=== PATIENT | female | born 1940 | race Caucasian/White ===

== ENCOUNTER → 2016-10-02 | Outpatient (CLI) | payer MEDICARE | END | disposition home or self-care (01) | LOC: MW.CHFP 08:21 | PROVIDERS: ATTEND Student in an Organized Health Care Education/Training Program | DX: E87.6 Hypokalemia (principal); R00.0 Tachycardia, unspecified; C49.22 Malignant neoplasm of connective and soft tissue of left lower limb, including hip; I48.91 Unspecified atrial fibrillation; I50.9 Heart failure, unspecified; N18.9 Chronic kidney disease, unspecified; E78.5 Hyperlipidemia, unspecified; Z09 Encounter for follow-up examination after completed treatment for conditions other than malignant neoplasm | CPT/HCPCS: 36415; 80048; 93005; 99214; G0463 ==

== ENCOUNTER 2016-10-14 13:34 | Emergency (ER) | payer MEDICARE ==
--- NOTE | 2016-10-14 14:00 | EDM.PDOC ---
ED HPI Skin/Rash - General Chief Complaint: Skin Complaint Stated Complaint: UNK Time Seen by Provider: 10/14/16 13:55 Source: Reports: Patient History Limitations: Reports: No limitations - History of Present Illness INITIAL COMMENTS - FREE TEXT/NARRATIVE: HISTORY AND PHYSICAL: History of present illness: [Patient comes to the emergency room, accompanied by her daughter, complaining of a skin tear to her right forearm. Her was falling and reached out for her grabbing onto her right forearm with his fingernails. She had immediate pain and bleeding from her arm. She has been prone to skin tears in the past.] Review of systems: As per history of present illness and below otherwise all systems reviewed and negative. Past medical history: As per history of present illness and as reviewed below otherwise noncontributory. Surgical history: As per history of present illness and as reviewed below otherwise noncontributory. Social history: No reported history of drug or alcohol abuse. Family history: As per history of present illness and as reviewed below otherwise noncontributory. Physical exam: HEENT: Atraumatic, normocephalic. Lungs: Clear to auscultation, breath sounds equal bilaterally. Heart: S1S2, regular rate and rhythm. Abdomen: Soft, nondistended, nontender. Extremities: Skin is frail. Ecchymosis present to R forearm, with 2 skin tears, one measuring 1.5" in length, and one 0.5" in length. Genitourinary: Deferred. Rectal: Deferred. Neuro: Awake, alert, oriented. Exam nonfocal. Impression: [Skin tear right forearm] Plan: [Wound is cleansed with copious amount of wound wash, and is dressed with Tegaderm. Followup with primary care later this week for reevaluation. All questions are answered and concerns are addressed. Daughter is present at patient's bedside. ] Definitive disposition and diagnosis as appropriate pending reevaluation and review of above. - Related Data Allergies Allergy/AdvReac Type Severity Reaction Status Date / Time No Known Allergies Allergy Verified 10/14/16 14:05 Home Meds: Ambulatory Orders Medication Instructions Recorded Confirmed amLODIPine [Norvasc] 5 mg PO DAILY 07/20/15 10/01/16 Acetaminophen 650 mg PO Q4H PRN 05/28/16 10/01/16 Aspirin [Ecotrin] 81 mg PO DAILY 07/10/16 10/01/16 Calcitriol 0.25 mcg PO ASDIRECTED 08/15/16 10/01/16 Hydrocodone/Acetaminophen 5 - 325 mg PO Q12H PRN 08/15/16 10/01/16 [Hydrocodon-Acetaminophen 5-325] Insulin Glarg,Human.Rec.Analog 15 units SUBCUT DAILY 08/15/16 10/01/16 [LantUS Solostar] Insulin Lispro [HumaLOG] 7 unit SUBCUT TIDAC 08/15/16 10/01/16 Metolazone [Zaroxolyn] 10 mg PO DAILY 08/15/16 10/01/16 Metoprolol Tartrate [Lopressor] 100 mg PO BID 08/15/16 10/01/16 Pentoxifylline [TRENtal] 400 mg PO TID 08/15/16 10/01/16 Potassium Chloride 40 meq PO BID 08/15/16 10/01/16 Torsemide 100 mg PO DAILY 08/15/16 10/01/16 Vitamin E 400 unit PO BID 08/15/16 10/01/16 atorvaSTATin Calcium [Atorvastatin 2 tab PO BEDTIME 08/15/16 10/01/16 Calcium] Ondansetron [Ondansetron ODT] 1 tab PO TID 10/01/16 10/01/16 Past Medical History HEENT History: Reports: Cataract, Hard of hearing Other HEENT History: top and bottom dentures Cardiovascular History: Reports: Afib, Bacterial endocarditis, Heart Failure, Hypertension Other Cardiovascular History: hx endocarditis,sepsis,CHF,comma for 10 days,on vent. and dialysis in january of this year. Respiratory History: Reports: None Gastrointestinal History: Reports: GERD, GI bleed Other Gastrointestinal History: remopval of sludge from gallbladder and now with gallbladder drain in situ Genitourinary History: Reports: Acute renal failure, Chronic renal insuffiency Other Genitourinary History: hx of renal failure with dialysis in January 2015 following episode of endocaditis and staff infection (was in [facility] for 2 weeks as stated by son) THERAPEUTIC STRATEGY LEAD History: Reports: Musculoskeletal History: Reports: Fracture, Osteoarthritis Neurological History: Reports: CVA Other Neuro History: aphasia. need to write down questions to pt and she is able to answer yes or no. 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 Dermatologic History: Reports: Other (see below) Other Dermatologic History: hx cellulitis to left leg as stated in H&P - Infectious Disease History Infectious Disease History: Reports: Chicken pox, Measles, Mumps - Past Surgical History Head Surgeries/Procedures: Reports: None HEENT Surgical History: Reports: Cataract surgery Cardiovascular Surgical History: Reports: None GI Surgical History: Reports: None Female Surgical History: Reports: None Endocrine Surgical History: Reports: None Neurological Surgical History: Reports: None Musculoskeletal Surgical History: Reports: None Social & Family History - Family History Family Medical History: Noncontributory HEENT: Reports: Hearing impairment, Impaired vision Respiratory: Reports: COPD Endocrine/Metabolic: Reports: Diabetes, type II Oncologic: Reports: Leukemia - Tobacco Use Smoking Status *Q: Never Smoker Second Hand Smoke Exposure: No - Caffeine Use Caffeine Use: Reports: Coffee, Soda, Tea Caffeine Use Comment: 2 drinks/day - Alcohol Use Days Per Week of Alcohol Use: 0 Number of Drinks Per Day: 0 Total Drinks Per Week: 0 - Recreational Drug Use Recreational Drug Use: No Drug Use in Last 12 Months: No - Living Situation & Occupation Living situation: Reports: Occupation: retired ED ROS GENERAL - Review of Systems Review Of Systems: ROS reveals no pertinent complaints other than HPI. ED EXAM, SKIN/RASH Exam: See Below Course - Vital Signs Last Recorded V/S: Last Vital Signs Temp 97.7 F 10/14/16 14:05 Pulse 102 H 10/14/16 14:05 Resp 16 10/14/16 14:05 BP 117/66 10/14/16 14:05 Pulse Ox 93 L 10/14/16 14:05 Departure - Departure Time of Disposition: 14:15 Disposition: Home, Self-Care 01 Condition: good Clinical Impression: Skin tear of forearm without complication Qualifiers: Encounter type: initial encounter Laterality: right Qualified Code(s): S51.811A - Laceration without foreign body of right forearm, initial encounter Instructions: Nonsutured Laceration Care Referrals: PCP,None [Primary Care Provider] - Forms: ED Department Discharge Additional Instructions: The following information is given to patients seen in the emergency department who are being discharged to home. This information is to outline your options for follow-up care. We provide all patients seen in our emergency department with a follow-up referral. The need for follow-up, as well as the timing and circumstances, are variable depending upon the specifics of your emergency department visit. If you don't have a primary care physician on staff, we will provide you with a referral. We always advise you to contact your personal physician following an emergency department visit to inform them of the circumstance of the visit and for follow-up with them and/or the need for any referrals to a consulting specialist. The emergency department will also refer you to a specialist when appropriate. This referral assures that you have the opportunity for follow-up care with a specialist. All of these measure are taken in an effort to provide you with optimal care, which includes your follow-up. Under all circumstances we always encourage you to contact your private physician who remains a resource for coordinating your care. When calling for follow-up care, please make the office aware that this follow-up is from your recent emergency room visit. If for any reason you are refused follow-up, please contact the [facility] emergency department at and asked to speak to the emergency department charge nurse. [facility] Primary [facility] [address] [place] [id number] Followup with your primary care provider in 3-5 days for reevaluation of skin tear. In the meantime leave the dressing intact until reevaluated. Return to ER as needed and as discussed.
[2016-10-14 14:09] VITALS: BP 117/66
== END 2016-10-14 14:20 | disposition home or self-care (01) ==
LOC: MW.ED 13:34
DX: S50.811A Abrasion of right forearm, initial encounter (principal); K21.9 Gastro-esophageal reflux disease without esophagitis; M19.90 Unspecified osteoarthritis, unspecified site; E11.9 Type 2 diabetes mellitus without complications; W19.XXXA Unspecified fall, initial encounter; Z79.899 Other long term (current) drug therapy; Z79.82 Long term (current) use of aspirin; Z98.49 Cataract extraction status, unspecified eye; Z86.2 Personal history of diseases of the blood and blood-forming organs and certain disorders involving the immune mechanism
CPT/HCPCS: 99282; 99283

== ENCOUNTER → 2016-10-17 | Outpatient (CLI) | payer MEDICARE | LOC: MW.CHIM 09:31 | PROVIDERS: ATTEND Internal Medicine | DX: D62 Acute posthemorrhagic anemia (principal); R00.0 Tachycardia, unspecified | CPT/HCPCS: 36415; 80048; G0463 ==

== ENCOUNTER 2016-10-24 04:11 | Emergency (ER) | payer MEDICARE ==
--- NOTE | 2016-10-24 04:55 | EDM.PDOC ---
ED HISTORY OF PRESENT ILLNESS - General Chief Complaint: Respiratory Problem Stated Complaint: CHEST PAINS Time Seen by Provider: 10/24/16 04:20 - History of Present Illness INITIAL COMMENTS - FREE TEXT/NARRATIVE: HISTORY AND PHYSICAL: History of present illness: The patient is a 75-year-old female who is well known to me and has a history of diabetes hypertension chronic renal insufficiency a left lower extremity sarcoma and multiple ER visits for shortness of breath and related problems; the patient presents tonight with the son after awakening him sleep at 2 AM in complaining of shortness of breath feeling panicked and having some chest heaviness. According to the son she was having labored breathing and were told by the primary to come to the ER if this happens. I saw the patient on Oct 01 for similar symptoms and she has since that visit been seen her screwdown operator, Dr Rice, as well as her kidney doctor, , at [facility] and had her medications adjusted. She's currently on Zaroxolyn and torsemide for her CHF and fluid retention and they have adjusted those recently to higher values. The patient has also been sent seen by Dr. Holden and Dr. Sue regarding her left leg sarcoma and both have determined that intervention is likely not possible and they have been discussing hospice care. Patient has appointment with her primary Dr. Rao this to further discuss hospice care and to reevaluate her medications. The son states that he did not know what to do when she was feeling so short of breath tonight so brought her here but currently in the ER she is significantly improved and back to her baseline. The patient for me as no complaints of chest pain or shortness of breath no abdominal pain no fevers vomiting and has been eating and drinking normally. She has been compliant with her medications. Review of systems: As per history of present illness and below otherwise all systems reviewed and negative. Past medical history: As per history of present illness and as reviewed below otherwise noncontributory. Surgical history: As per history of present illness and as reviewed below otherwise noncontributory. Social history: No reported history of drug or alcohol abuse. Family history: As per history of present illness and as reviewed below otherwise noncontributory. Physical exam: General: Well-developed well-nourished female who is breathing easily and without distress in the ED and her vital signs have been reviewed by me. She is exhibiting no signs of work of breathing or anxiety and she is very hard of hearing HEENT: Atraumatic, normocephalic, pupils reactive, negative for conjunctival pallor or scleral icterus, mucous membranes moist, throat clear, neck supple, nontender, trachea midline. Lungs: Clear to auscultation, breath sounds equal bilaterally, chest nontender.No work or breathing or sensory muscle use Heart: S1S2, regular rhythm tachycardic rate which is chronic for her, negative for clicks, rubs, or JVD. Abdomen: Soft, nondistended, nontender. Negative for masses or hepatosplenomegaly. Negative for costovertebral tenderness. Pelvis: Stable nontender. Genitourinary: Deferred. Rectal: Deferred. Extremities: Atraumatic, negative for cords or calf pain. Neurovascular unremarkable.Left lower extremity leg lesion is somewhere to prior evaluations and there is no surrounding erythema swelling or tenderness appreciated by me today. There is a trace to 1+ pedal edema but it is not pitting and there is no gross calf tenderness Neuro: Awake, alert, oriented. Cranial nerves II through XII unremarkable. Cerebellum unremarkable. Motor and sensory unremarkable throughout. Exam nonfocal. Diagnostics: EKG chest x-ray CBC CMP troponin BNP Therapeutics: O2 monitor Please note the patient is chronically tachycardic and has consistently been tachycardic on all of her clinic visit the most recent being with Dr. Sue on her which had a heart rate of 120. On her ER visit with me she was similarly tachycardic and this is not different or new per her history. She does not complain of palpitations or skipping beats. According to the son they are currently discussing hospice but that has not been decided and the plan is to discuss it with Dr. Rao again on . He states to me that when she gets herself worked up and she is short of breath he does not know what to do and he brings her here. Today's BNP is significantly improved from her last visit with me on October 01. Her BUN and creatinine have worsened with her creatinine today is 3.5 compared to the 2.9 it was last performed as an outpatient. She states she is having urine output with her medications. I will advise the son have that rechecked with Dr. Rao on and I will write an order to have that done before she sees him. In discussion with the son, he feels comfortable with followup with Dr. Rao on and has been advised and reasons to return. Impression: Episode of dyspnea, resolved with multiple medical problems stable Definitive disposition and diagnosis as appropriate pending reevaluation and review of above. - Related Data Allergies/ADRs: Allergies Allergy/AdvReac Type Severity Reaction Status Date / Time No Known Allergies Allergy Verified 10/24/16 04:27 Home Meds: Home Meds Acetaminophen 650 mg PO Q4H PRN 05/28/16 [History] Aspirin [Ecotrin] 81 mg PO DAILY 07/10/16 [History] Calcitriol 0.25 mcg PO ASDIRECTED 08/15/16 [History] Hydrocodone/Acetaminophen [Hydrocodon-Acetaminophen 5-325] 5 - 325 mg PO Q12H PRN 08/15/16 [History] Insulin Glarg,Human.Rec.Analog [LantUS Solostar] 15 units SUBCUT DAILY 08/15/16 [History] Insulin Lispro [HumaLOG] 7 unit SUBCUT TIDAC 08/15/16 [History] Metolazone [Zaroxolyn] 10 mg PO DAILY 08/15/16 [History] Metoprolol Tartrate [Lopressor] 100 mg PO BID 08/15/16 [History] Pentoxifylline [TRENtal] 400 mg PO TID 08/15/16 [History] Potassium Chloride 40 meq PO BID 08/15/16 [History] Torsemide 140 mg PO DAILY 08/15/16 [History] Vitamin E 400 unit PO BID 08/15/16 [History] atorvaSTATin Calcium [Atorvastatin Calcium] 2 tab PO BEDTIME 08/15/16 [History] Ondansetron [Ondansetron ODT] 1 tab PO TID 10/01/16 [History] Past Medical History HEENT History: Reports: Cataract, Hard of hearing Other HEENT History: top and bottom dentures Cardiovascular History: Reports: Afib, Bacterial endocarditis, Heart Failure, Hypertension Other Cardiovascular History: hx endocarditis,sepsis,CHF,comma for 10 days,on vent. and dialysis in january of this year. 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 need to write down questions to pt and she is able to answer yes or no. 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 Dermatologic History: Reports: Other (see below) Other Dermatologic History: hx cellulitis to left leg as stated in H&P - Infectious Disease History Infectious Disease History: Reports: Chicken pox, Measles, Mumps - Past Surgical History Head Surgeries/Procedures: Reports: None HEENT Surgical History: Reports: Cataract surgery Cardiovascular Surgical History: Reports: None GI Surgical History: Reports: None Female Surgical History: Reports: None Endocrine Surgical History: Reports: None Neurological Surgical History: Reports: None Musculoskeletal Surgical History: Reports: None Social & Family History - Family History Family Medical History: Noncontributory HEENT: Reports: Hearing impairment, Impaired vision Respiratory: Reports: COPD Endocrine/Metabolic: Reports: Diabetes, type II Oncologic: Reports: Leukemia - Tobacco Use Smoking Status *Q: Never Smoker Second Hand Smoke Exposure: No - Caffeine Use Caffeine Use: Reports: Coffee, Soda, Tea Caffeine Use Comment: 2 drinks/day - Alcohol Use Days Per Week of Alcohol Use: 0 Number of Drinks Per Day: 0 Total Drinks Per Week: 0 - Recreational Drug Use Recreational Drug Use: No Drug Use in Last 12 Months: No - Living Situation & Occupation Living situation: Reports: Occupation: retired ED ROS GENERAL - Review of Systems Review Of Systems: ROS reveals no pertinent complaints other than HPI. ED EXAM, GENERAL - Physical Exam Exam: See Below (See dictation) Course - Vital Signs Last Recorded V/S: Last Vital Signs Temp 36.2 C 10/24/16 04:11 Pulse 118 H 10/24/16 04:11 Resp 18 10/24/16 04:11 BP 115/73 10/24/16 04:11 Pulse Ox 100 10/24/16 04:11 - Orders/Labs/Meds Orders: Active Orders 24 hr Category Date Time Status Cardiac Monitoring [RC] . DIRECTED Care 10/24/16 04:47 Active EKG Documentation Completion [RC] STAT Care 10/24/16 04:47 Active Oxygen Therapy, ED [RC] ASDIRECTED Care 10/24/16 04:47 Active Pulse Oximetry [RC] ASDIRECTED Care 10/24/16 04:47 Active Chest 1V Frontal [CR] Stat Exams 10/24/16 04:47 Taken Labs: Laboratory Tests 10/24/16 10/24/16 10/24/16 Range/Units 04:27 04:35 04:35 WBC 9.07 (4.0-11.0) K/uL RBC 4.16 L (4.30-5.90) M/uL Hgb 11.6 L (12.0-16.0) g/dL Hct 34.8 L (36.0-46.0) % MCV 83.7 (80.0-98.0) fL MCH 27.9 (27.0-32.0) pg MCHC 33.3 (31.0-37.0) g/dL RDW Std Deviation 48.6 (28.0-62.0) fl RDW Coeff of Bossman 16 H (11.0-15.0) % Plt Count 219 (150-400) K/uL MPV 9.20 (7.40-12.00) fL Neut % (Auto) 62.0 (48.0-80.0) % Lymph % (Auto) 22.4 (16.0-40.0) % [place] % (Auto) 12.9 (0.0-15.0) % Eos % (Auto) 2.0 (0.0-7.0) % Baso % (Auto) 0.7 (0.0-1.5) % Neut # 5.6 (1.4-5.7) K/uL Lymph # 2.0 (0.6-2.4) K/uL [place] # 1.2 H (0.0-0.8) K/uL Eos # 0.2 (0.0-0.7) K/uL Baso # 0.1 (0.0-0.1) K/uL Nucleated RBC % 0.0 /100WBC Nucleated RBCs # 0 K/uL Sodium 137 (136-146) mmol/L Potassium 3.8 (3.5-5.1) mmol/L Chloride 93 L (98-110) mmol/L Carbon Dioxide 27 (21-31) mmol/L BUN 123 H (6.0-23.0) mg/dL Creatinine 3.5 H (0.6-1.5) mg/dL Est Cr Clr Drug Dosing 11.13 mL/min Estimated GFR (MDRD) 12.7 ml/min Glucose 157 H (60-110) mg/dL Calcium 9.1 (8.8-10.8) mg/dL Total Bilirubin 0.7 (0.1-1.5) mg/dL AST 35 (5-40) IU/L ALT 25 (8-54) IU/L Alkaline Phosphatase 86 (40-150) Troponin I < 0.10 (0.0-0.29) NG/ML B-Natriuretic Peptide (<100) PG/ML Total Protein 8.2 H (6.0-8.0) g/dL Albumin 3.5 (3.4-4.8) g/dL Globulin 4.7 H (2.0-3.5) g/dL Albumin/Globulin Ratio 0.7 L (1.3-2.8) 10/24/16 Range/Units 04:35 WBC (4.0-11.0) K/uL RBC (4.30-5.90) M/uL Hgb (12.0-16.0) g/dL Hct (36.0-46.0) % MCV (80.0-98.0) fL MCH (27.0-32.0) pg MCHC (31.0-37.0) g/dL RDW Std Deviation (28.0-62.0) fl RDW Coeff of Bossman (11.0-15.0) % Plt Count (150-400) K/uL MPV (7.40-12.00) fL Neut % (Auto) (48.0-80.0) % Lymph % (Auto) (16.0-40.0) % [place] % (Auto) (0.0-15.0) % Eos % (Auto) (0.0-7.0) % Baso % (Auto) (0.0-1.5) % Neut # (1.4-5.7) K/uL Lymph # (0.6-2.4) K/uL [place] # (0.0-0.8) K/uL Eos # (0.0-0.7) K/uL Baso # (0.0-0.1) K/uL Nucleated RBC % /100WBC Nucleated RBCs # K/uL Sodium (136-146) mmol/L Potassium (3.5-5.1) mmol/L Chloride (98-110) mmol/L Carbon Dioxide (21-31) mmol/L BUN (6.0-23.0) mg/dL Creatinine (0.6-1.5) mg/dL Est Cr Clr Drug Dosing mL/min Estimated GFR (MDRD) ml/min Glucose (60-110) mg/dL Calcium (8.8-10.8) mg/dL Total Bilirubin (0.1-1.5) mg/dL AST (5-40) IU/L ALT (8-54) IU/L Alkaline Phosphatase (40-150) Troponin I (0.0-0.29) NG/ML B-Natriuretic Peptide 672 H (<100) PG/ML Total Protein (6.0-8.0) g/dL Albumin (3.4-4.8) g/dL Globulin (2.0-3.5) g/dL Albumin/Globulin Ratio (1.3-2.8) Departure - Departure Time of Disposition: 05:46 Disposition: Home, Self-Care 01 Condition: good Clinical Impression: Dyspnea Qualifiers: Dyspnea type: unspecified Qualified Code(s): R06.00 - Dyspnea, unspecified Referrals: Lambert Rao MD [Primary Care Provider] - Forms: ED Department Discharge Additional Instructions: The following information is given to patients seen in the emergency department who are being discharged to home. This information is to outline your options for follow-up care. We provide all patients seen in our emergency department with a follow-up referral. The need for follow-up, as well as the timing and circumstances, are variable depending upon the specifics of your emergency department visit. If you don't have a primary care physician on staff, we will provide you with a referral. We always advise you to contact your personal physician following an emergency department visit to inform them of the circumstance of the visit and for follow-up with them and/or the need for any referrals to a consulting specialist. The emergency department will also refer you to a specialist when appropriate. This referral assures that you have the opportunity for followup care with a specialist. All of these measure are taken in an effort to provide you with optimal care, which includes your followup. Under all circumstances we always encourage you to contact your private physician who remains a resource for coordinating your care. When calling for followup care, please make the office aware that this follow-up is from your recent emergency room visit. If for any reason you are refused follow-up, please contact the [facility] emergency department at and ask to speak to the emergency department charge nurse. [facility] Primary care- Internal Medicine and Family [address] [address] Please continue all home medications and keep her appointment with Dr. Rao on . Please go have her blood drawn to recheck your kidney function prior to that appointment on using the prescription given to you kandice. Please return to ER as needed and as discussed - My Orders Last 24 Hours: My Active Orders 10/24/16 04:47 Cardiac Monitoring [RC] . DIRECTED EKG Documentation Completion [RC] STAT Oxygen Therapy, ED [RC] ASDIRECTED Pulse Oximetry [RC] ASDIRECTED Chest 1V Frontal [CR] Stat - Assessment/Plan Last 24 Hours: My Active Orders 10/24/16 04:47 Cardiac Monitoring [RC] . DIRECTED EKG Documentation Completion [RC] STAT Oxygen Therapy, ED [RC] ASDIRECTED Pulse Oximetry [RC] ASDIRECTED Chest 1V Frontal [CR] Stat
[2016-10-24 05:51] VITALS: BP 124/78
--- NOTE | 2016-10-26 16:49 | CR ---
EXAM DATE: 10/24/16 PATIENT'S AGE: 75 Patient: CRISTOBAL LIZA Facility: [place], [place] Site . Site : [id number] Study: XRay Chest [id number]/14/2017 5:02:05 AM Ordering Physician: Venus Saldaña Final Report: Indication: Chest pain. Shortness of breath. Technique: Chest 1 view Comparison: 10/01/16. Findings/Impression: Cardiovascular and mediastinum: Stable cardiomegaly. Lungs and pleural space: Expiratory study. No gross consolidation or pleural effusions. Bones and soft tissues: No significant change. Dictated by Tonny Herndon MD @ 10/24/2016 5:41:02 AM Dictated by: Tonny Herndon MD @ 10/24/2016 05:41:07 (Electronic Signature) Report Signed by Proxy and Original Signed Document filed in the Medical Record. [email or web address]
== END 2016-10-24 06:21 | disposition home or self-care (01) ==
LOC: MW.ED 04:11
DX: R06.00 Dyspnea, unspecified (principal); I10 Essential (primary) hypertension; K21.9 Gastro-esophageal reflux disease without esophagitis; E11.9 Type 2 diabetes mellitus without complications; M19.90 Unspecified osteoarthritis, unspecified site; Z79.82 Long term (current) use of aspirin; Z79.899 Other long term (current) drug therapy; Z98.49 Cataract extraction status, unspecified eye; Z86.2 Personal history of diseases of the blood and blood-forming organs and certain disorders involving the immune mechanism
CPT/HCPCS: 36415; 71010; 71010-26; 80053; 83880; 84484; 85025; 93005; 99284; 99285-25

== ENCOUNTER → 2016-10-26 | Outpatient (CLI) | payer MEDICARE | LOC: MW.LAB 10:12 | PROVIDERS: ATTEND Emergency Medicine | DX: F41.9 Anxiety disorder, unspecified (principal); Z71.9 Counseling, unspecified; Z51.5 Encounter for palliative care | CPT/HCPCS: 36415; 80048; G0463 ==